=== PATIENT | male | born 1965 | race African-American/Black ===

== ENCOUNTER 2016-12-17 10:33 | Emergency (ER) | payer OTHER ==
[~2016-12-17] VITALS: Ht 175.3 cm; Wt 59.0 kg
--- NOTE | 2016-12-17 11:00 | NUR ---
pt self presents to er bed 14. c/o auditory and visual hallucination, telling him to "just do it." c/o si w/ multiple plans. sates want o run through traffic. pt is cooperative. placed on si precaution. vss. awaiting md taveras.
[2016-12-17 11:16] LABS: APPEARANCE,URINE Clear (CLEAR); BILIRUBIN,URINE Negative (NEGATIVE); BLOOD, URINE Negative Ery/uL (NEGATIVE); COLOR,URINE Yellow (YELLOW); KETONES,URINE Negative (NEGATIVE); LEUKOCYTE ESTERASE ,URINE Negative (NEGATIVE); NITRITE, URINE Negative (NEGATIVE); PH,URINE 5.5 (5.0-8.0); PROTEIN,URINE 30 mg/dl (NEGATIVE); UGLUCOSE Negative (NEGATIVE); UROBILINOGEN,URINE 0.2 EU/dL (0.2)
[2016-12-17 11:28] LABS: BASOPHILS # (AUTO) 0.1 /CMM (0.0-0.2); BASOPHILS % (AUTO) 0.9 % (0.0-2.0); EOSINOPHILS # (AUTO) 0.2 /CMM (0.0-0.7); EOSINOPHILS % (AUTO) 3.2 % (0.0-6.0); HEMATOCRIT 41 % (39-51); HEMOGLOBIN 13.1 g/dL (13.5-17.5); LYMPHOCYTES # (AUTO) 2.2 /CMM (0.8-4.8); LYMPHOCYTES % (AUTO) 28.7 % (20.0-44.0); MEAN CORPUSCULAR HEMOGLOBIN 28 PG (26.0-33.0); MEAN CORPUSCULAR HGB CONC 32 g/dl (31.0-36.0); MEAN CORPUSCULAR VOLUME 87 fL (80-96); MONOCYTES # (AUTO) 0.5 /CMM (0.1-1.30); MONOCYTES % (AUTO) 6.8 % (2.0-12.0); NEUTROPHILS # (AUTO) 4.5 /CMM (1.8-8.9); NEUTROPHILS % (AUTO) 60.4 % (43.0-81.0); PLATELET COUNT (AUTO) 417 /CMM (150-450); RDW COEFFICIENT OF VARIATION 14.6 (11.5-15.0); RED BLOOD CELL COUNT(AUTO) 4.69 MIL/uL (4.5-6.0); WHITE BLOOD COUNT (AUTO) 7.5 K/uL (4.3-11.0)
[2016-12-17 11:38] LABS: CALCIUM, SERUM 8.7 mg/dL (8.5-10.1); CARBON DIOXIDE 25 mmol/L (21-32); CHLORIDE 99 mmol/L (98-107); CREATININE 1.4 mg/dL (0.6-1.3); GLUCOSE 85 mg/dL (74-106); POTASSIUM 3.9 mmol/L (3.5-5.1); SODIUM SERUM 135 mmol/L (136-145); UREA NITROGEN, BLOOD 25 mg/dL (7-18)
--- NOTE | 2016-12-17 11:40 | NUR ---
dr soliman at bedside for eval.
[2016-12-17 11:44] LABS: ALANINE AMINOTRANSFERASE 51 U/L (12-78); ALCOHOL, BLOOD < 3 mg/dL (0-0); ALKALINE PHOSPHATASE 74 U/L (46-116); ASPARTATE AMINOTRANSFERASE 118 U/L (15-37); BILIRUBIN,DIRECT 0.1 mg/dL (0.0-0.2); BILIRUBIN,TOTAL 0.7 mg/dL (0.2-1.0); TOTAL PROTEIN, SERUM 8.3 g/dL (6.4-8.2)
[2016-12-17 11:46] LABS: ACETAMINOPHEN 0 ug/ml (10-30)
[2016-12-17] MEDS ORDERED: OLANZAPINE 5 MG/TAB.RAPDIS PO ONE (12:00)
[2016-12-17] MEDS ORDERED: OLANZAPINE 5 MG TABLET ONE (12:07)
--- NOTE | 2016-12-17 17:26 | NUR ---
Patient given written and verbal discharge instructions. Patient verbalizes understanding of instructions. Patient is ambulatory with steady gait. Refuses offer of [facility] placement. Patient given list of available shelters and rehabilition centers in surrounding area. Ambulatory with a steady gait. NAD. VS WNL.
[2016-12-17 17:28] VITALS: BP 128/80
== END 2016-12-17 17:28 | disposition home or self-care (01) ==
LOC: ER 10:38
DX: R45.851 Suicidal ideations (principal); R44.0 Auditory hallucinations; F31.9 Bipolar disorder, unspecified; F20.9 Schizophrenia, unspecified; F17.200 Nicotine dependence, unspecified, uncomplicated; Z59.0 Homelessness
CPT/HCPCS: 36415; 80048-TC; 80076-TC; 80305; 81000-TC; 85025-TC; A4606; G0480; Z7610

== ENCOUNTER 2020-06-30 21:16 | Emergency (ER) | payer MEDICAID, OTHER ==
[~2020-06-30] VITALS: Ht 170.2 cm; Wt 61.2 kg
--- NOTE | 2020-06-30 21:35 | NUR ---
PT CAME TO THE ER C/O SI W/ A PLAN TO OVERDOSE ON DRUGS. PT DENIES HI. PT AAOX4, VSS, RESPIRATIONS EVEN AND UNLABORED ON RA W/ NAD NOTED. PT CHANGED INTO GOWN, BELONGINGS PLACED TO LOCKERS. SUICIDE PRECAUTIONS IMPLEMENTED. SITTER AT BEDSIDE.
--- NOTE | 2020-06-30 21:41 | NUR ---
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
[2020-06-30 21:47] LABS: BASOPHILS # (AUTO) 0.1 /CMM (0.0-0.2); EOSINOPHILS % (AUTO) 4.5 % (0.0-6.0); HEMATOCRIT 37 % (39-51); HEMOGLOBIN 12.3 g/dL (13.5-17.5); LYMPHOCYTES # (AUTO) 2.1 /CMM (0.8-4.8); LYMPHOCYTES % (AUTO) 35.2 % (20.0-44.0); MEAN CORPUSCULAR HGB CONC 33 g/dl (31.0-36.0); MEAN CORPUSCULAR VOLUME 89 fL (80-96); MONOCYTES # (AUTO) 0.5 /CMM (0.1-1.30); MONOCYTES % (AUTO) 8.9 % (2.0-12.0); NEUTROPHILS % (AUTO) 50.4 % (43.0-81.0); PLATELET COUNT (AUTO) 307 /CMM (150-450); RED BLOOD CELL COUNT(AUTO) 4.12 MIL/uL (4.5-6.0)
--- NOTE | 2020-06-30 21:48 | NUR ---
urine sent to lab
--- NOTE | 2020-06-30 21:50 | NUR ---
pa lupillo with pt for eval.
[2020-06-30 22:25] LABS: ACETAMINOPHEN < 10 ug/ml (10-30); ALANINE AMINOTRANSFERASE 26 U/L (12-78); ALBUMIN 3.6 g/dL (3.4-5.0); ALCOHOL, BLOOD < 3 mg/dL (0-0); ALKALINE PHOSPHATASE 61 U/L (46-116); ASPARTATE AMINOTRANSFERASE 34 U/L (15-37); BILIRUBIN,DIRECT 0.1 mg/dL (0.0-0.2); BILIRUBIN,TOTAL 0.5 mg/dL (0.2-1.0); CALCIUM, SERUM 8.6 mg/dL (8.5-10.1); CARBON DIOXIDE 25 mmol/L (21-32); CHLORIDE 103 mmol/L (98-107); CREATININE 1.1 mg/dL (0.6-1.3); GLUCOSE 74 mg/dL (74-106); POTASSIUM 3.8 mmol/L (3.5-5.1); SODIUM SERUM 138 mmol/L (136-145); UREA NITROGEN, BLOOD 20 mg/dL (7-18)
[2020-06-30 22:36] LABS: BILIRUBIN,URINE SMALL (NEGATIVE); COLOR,URINE YELLOW (YELLOW); LEUKOCYTE ESTERASE ,URINE NEGATIVE (NEGATIVE); NITRITE, URINE NEGATIVE (NEGATIVE); PROTEIN,URINE NEGATIVE (NEGATIVE); UGLUCOSE NEGATIVE (NEGATIVE); UROBILINOGEN,URINE 0.2 EU/dL (0.2)
[2020-06-30 22:55] LABS: BACTERIA,URINE None seen /HPF (None Seen); MUCUS,URINE Few /LPF (None Seen); RBC,URINE 0-2 /HPF (0-2); SQUAMOUS EPITHELIAL CELL,UR Few /HPF (None Seen); URINE AMORPHOUS URATE Few /HPF (None Seen); WBC,URINE 0-2 /HPF (0-3)
--- NOTE | 2020-06-30 23:21 | NUR ---
FACESHEET AND CLINICAL FAXED TO [facility] FOR VOLUNTARY ADMISSION.
--- NOTE | 2020-07-01 00:11 | NUR ---
covid negative per lab
--- NOTE | 2020-07-01 00:16 | NUR ---
[place] [facility] [place] [place]
--- NOTE | 2020-07-01 00:48 | NUR ---
TRANSFER INFO: [facility] ACCEPTING MD ARNOLD PHONE # FOR REPORT
--- NOTE | 2020-07-01 00:49 | NUR ---
[facility] ETA 30MIN
--- NOTE | 2020-07-01 01:00 | NUR ---
REPORT GIVEN TO SHAYNE ORO[facility]CO [facility] FOR [facility]ELICITAS
--- NOTE | 2020-07-01 01:22 | NUR ---
TRANSPORT AT BEDSIDE REPORT GIVEN TO [facility].
[2020-07-01 01:23] VITALS: BP 139/86
== END 2020-07-01 02:07 ==
LOC: ER 21:16
DX: R45.851 Suicidal ideations (principal); F31.9 Bipolar disorder, unspecified; F20.9 Schizophrenia, unspecified; Z91.14 Patient's other noncompliance with medication regimen; Z59.0 Homelessness; F15.10 Other stimulant abuse, uncomplicated; Z20.822 Contact with and (suspected) exposure to COVID-19; D64.9 Anemia, unspecified; F19.10 Other psychoactive substance abuse, uncomplicated
CPT/HCPCS: 36415; 80048; 80076; 80299; 80307; 80320; 81001; 85025; 87426; 99285; C9803; G0480

== ENCOUNTER 2023-01-06 02:41 | Emergency (ER) | payer SELFPAY ==
[~2023-01-06] VITALS: Ht 175.3 cm; Wt 68.0 kg
[2023-01-06 04:11] LABS: BASOPHILS # (AUTO) 0.1 K/uL (0.0-0.2); BASOPHILS % (AUTO) 1.3 % (0.0-2.0); EOSINOPHILS # (AUTO) 0.1 K/uL (0.0-0.7); EOSINOPHILS % (AUTO) 1.6 % (0.0-6.0); HEMATOCRIT 33 % (39-51); HEMOGLOBIN 10.6 g/dL (13.5-17.5); LYMPHOCYTES # (AUTO) 1.6 K/uL (0.8-4.8); LYMPHOCYTES % (AUTO) 25.9 % (20.0-44.0); MEAN CORPUSCULAR HEMOGLOBIN 27 PG (26.0-33.0); MEAN CORPUSCULAR HGB CONC 33 g/dl (31.0-36.0); MEAN CORPUSCULAR VOLUME 84 fL (80-96); MONOCYTES # (AUTO) 0.6 K/uL (0.1-1.30); MONOCYTES % (AUTO) 9.2 % (2.0-12.0); NEUTROPHILS # (AUTO) 3.9 K/uL (1.8-8.9); PLATELET COUNT (AUTO) 348 K/uL (150-450); RED BLOOD CELL COUNT(AUTO) 3.91 MIL/uL (4.5-6.0); WHITE BLOOD COUNT (AUTO) 6.3 K/uL (4.3-11.0)
[2023-01-06 04:28] LABS: ALANINE AMINOTRANSFERASE 26 U/L (12-78); ALBUMIN 3.6 g/dL (3.4-5.0); ALCOHOL, BLOOD < 3 mg/dL (0-10); ALKALINE PHOSPHATASE 82 U/L (46-116); ASPARTATE AMINOTRANSFERASE 34 U/L (15-37); BILIRUBIN,DIRECT 0.2 mg/dL (0.0-0.2); BILIRUBIN,TOTAL 0.6 mg/dL (0.2-1.0); CALCIUM, SERUM 8.9 mg/dL (8.5-10.1); CARBON DIOXIDE 25 mmol/L (21-32); CHLORIDE 99 mmol/L (98-107); CREATININE 1.7 mg/dL (0.6-1.3); GLUCOSE 83 mg/dL (74-106); POTASSIUM 3.9 mmol/L (3.5-5.1); SODIUM SERUM 133 mmol/L (136-145); TOTAL PROTEIN, SERUM 7.9 g/dL (6.4-8.2); UREA NITROGEN, BLOOD 27 mg/dL (7-18)
[2023-01-06 04:36] LABS: ACETAMINOPHEN <10 ug/ml (10-30); SALICYLATE < 2.3 mg/dL (2.8-20.0)
[2023-01-06 06:11] LABS: APPEARANCE,URINE CLEAR (CLEAR); BILIRUBIN,URINE NEGATIVE (NEGATIVE); BLOOD, URINE NEGATIVE Ery/uL (NEGATIVE); COLOR,URINE YELLOW (YELLOW); KETONES,URINE NEGATIVE (NEGATIVE); LEUKOCYTE ESTERASE ,URINE NEGATIVE (NEGATIVE); NITRITE, URINE NEGATIVE (NEGATIVE); PROTEIN,URINE TRACE mg/dl (NEGATIVE); UGLUCOSE NEGATIVE (NEGATIVE); UROBILINOGEN,URINE 0.2 EU/dL (0.2)
[2023-01-06 06:57] LABS: BARBITURATE, URINE NEGATIVE (NEGATIVE); BENZODIAZEPINE, URINE NEGATIVE (NEGATIVE); COCCAINE, URINE NEGATIVE (NEGATIVE); OPIATE, URINE NEGATIVE (NEGATIVE); PHENCYCLIDINE SCREEN,URINE NEGATIVE (NEGATIVE)
[2023-01-06 07:04] LABS: AMPHETAMINE, URINE POSITIVE (NEGATIVE); CANNABINOID, URINE POSITIVE (NEGATIVE)
[2023-01-06 15:44] VITALS: BP 148/89; TEMP 98; O2SAT 100
== END 2023-01-06 15:45 | disposition home or self-care (01) ==
LOC: ER 03:09
DX: R45.851 Suicidal ideations (principal); F31.9 Bipolar disorder, unspecified; F20.9 Schizophrenia, unspecified; F17.200 Nicotine dependence, unspecified, uncomplicated; Z20.822 Contact with and (suspected) exposure to COVID-19; Z59.00 Homelessness unspecified
CPT/HCPCS: 99285; 85025; 80048; 80076; 81003; 36415; 87426; 80143; 80320; 80307; C9803; G0480